=== PATIENT | female | born 1960 | race Caucasian/White ===

== ENCOUNTER 2018-11-08 07:26 | Inpatient (IN) ==
--- NOTE | 2018-10-17 11:07 | Anesthesiology Consultation ---
Date of Service October 17, 2018 Assessment & Plan (1) Encounter for pre-operative examination: PCP CLEARANCE (MERON) 10/31 = "medically cleared and low risk for proposed surgery. Reviewed labs and chest x-ray. Chest CT done 10/27/18 for evaluation of possible nodule is still pending but should not interfere with the surgery." CT subsequently resulted and shows no pulmonary nodules. Chart Review Chart Review: Acceptable Risk for Surgery and Patient seen in Pre Admission Testing Teaching & Discussion Instructed NPO after midnight before surgery, except medications with 15 cc of water. Medication instructions provided according to the PAT guidelines. History Surgery Operation Date: 11/08/18 09:15 Proposed Procedures p Left Total Knee Arthroplasty - Candelario Mandel DO Height/Weight Height: 5 ft 4.5 in Weight: 106 kg Allergies Allergy/AdvReac Type Severity Reaction Status Date / Time No Known Allergies Allergy Unknown Verified 10/10/18 10:03 Medications Home Medications Medication Instructions Recorded Confirmed Last Taken calcium carbonate [Tums] 200 mg PO BID PRN 10/10/18 10/10/18 Unknown citalopram 20 mg PO QAM 10/10/18 10/10/18 Unknown meloxicam 15 mg PO QAM 10/10/18 10/10/18 Unknown Past Medical History Medical History Anxiety GERD (gastroesophageal reflux disease) RARELY Migraine H/O Nausea and vomiting after administration of anesthetic agent Osteoarthritis Exercise / Class Metabolic Activity II 4-5 Yardwork/Stairs/Walk up hill (Denies CP or SOB with stairs, activity limi leonardo only by knee pain) Past Family History Family History Sister FHx: breast cancer, Onset Age: 59 FHx: bladder cancer, Onset Age: 60 Father FHx: lung cancer, Onset Age: 70 Past Surgical History Surgical History Fusion of spine C5-C6-C7. FULL ROM. History of cataract surgery BILATERAL History of colonoscopy History of tonsillectomy Past Anesthesia History No Hx of Anesthesia Complications (other than PONV) and No Family Hx of Anesthesia Complications History of PONV History of PONV (with cataracts. Was OK with c-spine sx) and Hx of Motion Sickness Social History Smoking Status: Former smoker tobacco type: cigarettes Do You Dip or Chew Tobacco: No Smoking End Date: QUIT 10 YEARS AGO Hx Alcohol Use: Yes alcohol intake frequency: holidays/special occasions only Hx Substance Use: No substance use type: does not use Review of Systems Pt denies any recent chest pain, shortness of breath, palpitations, cough, fever or URI. Physical Exam Vital Signs BP: 134/83 P: 81bpm SPO2: 96% RA T: 98.2 F R: 16 Constitutional + obese ENMT Mouth: + dentures (full upper plate) and + edentulous Thyromental Distance: < 3.5 Finger Breadths (3) Mallampati Class: II Neck normal visual inspection; neck extension not limited Respiratory normal respiratory effort Auscultation: lungs clear to auscultation bilaterally Cardiovascular Rate/Rhythm: regular rate and regular rhythm Heart Sounds: no murmur Vessels: no carotid bruit Extremities: no edema Testing Electrocardiogram Date: 10/17/18 Findings: + NSR @ (72 with sinus arrhythmia) DECLAN. iRBBB. Borderline EKG. Compared to EKG of 07/04/03, no significant change found. Chest X-Ray Date: 10/17/18 IMPRESSION: 1. Subtle 1.2 cm nodular opacity within left midlung. This may reflect artifact, minimal airspace disease or a pulmonary nodule. A chest CT is recommended to exclude a pulmonary nodule. 2. Otherwise, unremarkable chest radiographs. Other Testing CT Chest 10/27/18 No suspicious pulmonary nodules. Laboratory Results 10/17/18 11:16 10/17/18 11:16 PT 10.9 Seconds (9.0-12.0) 10/17/18 11:16 INR 1.1 (0.9-1.1) 10/17/18 11:16 APTT 28.2 Seconds (21.0-31.0) 10/17/18 11:16 5.6 % (4.5-5.6) 10/17/18 11:16 Yellow 10/17/18 11:16 Clear (Clear) 10/17/18 11:16 5.5 (4.5-7.5) 10/17/18 11:16 Ur Specific [place] 1.017 (1.000-1.030) 10/17/18 11:16 Negative (Negative) 10/17/18 11:16 Negative (Negative) 10/17/18 11:16 Negative (Negative) 10/17/18 11:16 Negative (Negative) 10/17/18 11:16 Ur Leukocyte Esterase Negative (Negative) 10/17/18 11:16 Blood Type O Positive 10/17/18 11:16 Antibody Screen NEGATIVE 10/17/18 11:16
--- NOTE | 2018-10-17 11:12 | PAT Medication Instructions ---
Medication Instructions Date of Service October 17, 2018 Home Medications calcium carbonate [Tums] 200 mg PO BID PRN citalopram 20 mg PO QAM meloxicam 15 mg PO QAM ASK your surgeon for instructions meloxicam 15 mg PO QAM DO NOT take the morning of surgery calcium carbonate [Tums] 200 mg PO BID PRN Take morning of surgery With a small sip of water, OTHERWISE NOTHING TO EAT OR DRINK AFTER MIDNIGHT: citalopram 20 mg PO QAM Take evening before surgery calcium carbonate [Tums] 200 mg PO BID PRN (if needed) Other Notes If you have any questions please call us at [phone] or [phone] or [phone] or [phone]
--- NOTE | 2018-10-17 11:38 | XRay Report ---
XR chest Pre-admission PA/Lat CLINICAL HISTORY: Preoperative evaluation. COMPARISON STUDY: No previous studies for comparison. FINDINGS: Anterior cervical spine fusion is incidentally noted. Lung volumes are normal. There is no pneumothorax or pleural effusion. Note is made of a subtle 1.2 cm nodular opacity within the left mid lung. This may be artifactual. Right lung is clear. Cardiac size is normal. Mediastinal contours are normal. There is no evidence for pulmonary edema. IMPRESSION: 1. Subtle 1.2 cm nodular opacity within left midlung. This may reflect artifact, minimal airspace dis ease or a pulmonary nodule. A chest CT is recommended to exclude a pulmonary nodule. 2. Otherwise, unremarkable chest radiographs. Electronically signed by: Jluis Ibanez M.D. 10/17/2018 11:36 AM
[2018-10-17 11:52] LABS: Basophils # (auto) 0.02 K/uL (0-0.2); Basophils % (auto) 0.3 %; Eosinophils # (auto) 0.11 K/uL (0-0.5); Eosinophils % (auto) 1.5 %; Hematocrit (blood only) 39.8 % (37-47); Hemoglobin 13.2 g/dL (12.0-16.0); Immature Granulocytes # (auto) 0.02 K/uL (0.00-0.02); Immature Granulocytes % (auto) 0.3 %; Lymphocytes # (auto) 1.75 K/uL (1.2-3.4); Lymphocytes % (auto) 23.5 %; Mean Corpuscular Hgb Conc 33.2 g/dL (32-36); Mean Corpuscular Volume 87.5 fL (80-100); Mean Platelet Volume 9.3 fL (7.4-10.4); Monocytes # (auto) 0.55 K/uL (0.11-0.59); Monocytes % (auto) 7.4 %; Neutrophils # (auto) 5.01 K/uL (1.4-6.5); Platelet Count 404 K/uL (130-400); RDW Coefficient of Variation 14.1 % (11.5-14.5); RDW Standard Deviation 44.8 fL (36.4-46.3); Red Blood Count 4.55 M/uL (4.2-5.4); White Blood Count 7.46 K/uL (4.8-10.8)
[2018-10-17 12:01] LABS: Albumin Level 3.5 gm/dl (3.4-5.0); Calcium 9.3 mg/dl (8.5-10.1); Creatinine Clr Calc Pharmacy 109.7 ml/min; Est GFR (African American) 112.3; Est GFR (Non-African American) 96.9; Potassium 4.6 mmol/L (3.5-5.1)
[2018-10-17 12:07] LABS: Appearance Urine Clear (Clear); Bilirubin Urine Negative (Negative); Blood Urine Negative (Negative); Color Urine Yellow; Glucose Urine UA Negative (Negative); INR 1.1 (0.9-1.1); Ketones Urine Negative (Negative); Leukocyte Esterase Urine Negative (Negative); Nitrite Urine Negative (Negative); Partial Thromboplastin Time 28.2 Seconds (21.0-31.0); Protein Urine Negative (Negative); Prothrombin Time 10.9 Seconds (9.0-12.0); Specific Gravity Urine 1.017 (1.000-1.030); Urobilinogen Urine Negative (Negative); pH Urine 5.5 (4.5-7.5)
[2018-10-17 12:30] LABS: Estimated Average Glucose 114 mg/dl; Hemoglobin A1C 5.6 % (4.5-5.6)
--- NOTE | 2018-11-06 23:30 | History & Physical Report ---
Date of Service November 06, 2018 Assessment & Plan (1) Degenerative joint disease of knee, left: I have indicated the patient for left total knee replacement. The risks, benefits and complications of surgery were explained to the patient which include but not limited to infection, acute blood loss, DVT/PE, injury to nerves, vessels, bone, soft tissue, arthrofibrosis, chronic pain, failure of the prosthesis, knee dislocation, leg length discrepancy, need for additional surgery, cardiac and pulmonary events and . The patient wished to proceed with surgery and informed consent was obtained at this time. We will plan for ASA BID post-operatively for DVT prophylaxis. Upon discharge the patient will be discharged home with home health services. Appropriate clearances by PCP were obtained. History of Present Illness Chief Complaint: Left knee pain/djd Primary Care Provider: Pauline Fowler MD The patient is a 58 year old female who presents with complaints of severe left knee pain and DJD. The patient has failed outpatient conservative treatments to this point which included NSAIDs, bracing, IA corticosteroid and LOFTON injections, HEP/PT. The patient's pain and limited function have progressed to the point where they severely hinder their activities of daily living and they no longer tolerate exercise programs. They are requesting to proceed with total knee replacement surgery. Allergies Allergy/AdvReac Type Severity Reaction Status Date / Time No Known Allergies Allergy Unknown Verified 11/08/18 07:48 Home Medications Home Medications Medication Instructions Recorded Confirmed Type calcium carbonate [Tums] 200 mg PO BID PRN 10/10/18 11/08/18 History citalopram 20 mg PO QAM 10/10/18 11/08/18 History meloxicam 15 mg PO QAM 10/10/18 11/08/18 History Past Med/Surg History Medical History Anxiety GERD (gastroesophageal reflux disease) RARELY Migraine H/O Osteoarthritis Surgical History Fusion of spine C5-C6-C7. FULL ROM. 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: No Beliefs That Will Affect Care: None Current Living Situation: Alone Other Information That Helps Us Care for You: No Feels Safe at Home: Yes Safety Concerns: Feels Safe At This Time Smoking Status: Former smoker (QUIT 09/2008, SMOKED FOR 31 YEARS) Tobacco Type: cigarettes Cigarettes Per Day: 30 Do You Dip or Chew Tobacco: No Smoking End Date: QUIT 10 YEARS AGO Second Hand Exposure: No Tobacco Cessation Education Requested by Patient: No Hx Alcohol Use: Yes Hx Substance Use: No Review of Systems Review of Systems: All systems reviewed & are unremarkable except as noted in HPI & below Constitutional: as per Subjective / HPI Physical Exam Physical Exam: LLE NVSI +EHL/FHL/TA/GS SILT grossly, +2 DP pulse, compartments soft NT, limited painful ROM 5-100, crepitus. Constitutional: WD/WN, vitals as above Eyes: PERRL, conjunctivae normal, anicteric sclerae ENMT: external ear and nose normal, oropharynx normal Neck: trachea midline, no thyromegaly Respiratory: normal respiratory effort, lungs clear to auscultation Cardiovascular: RRR, no murmur, no edema Gastrointestinal (Abdomen): normal bowel sounds, soft, nontender, no hepatosplenomegaly Musculoskeletal: no cyanosis or clubbing, extremities motor strength 5/5 Skin: no rashes, warm and dry Neurologic: patellar DTR's 2+ bilat, sensation intact Psychiatric: A+Ox3, euthymic affect Lymphatic: no cervical or axillary lymphadenopathy Results & Data Diagnostic Findings Multiple views of the knee demonstrates severe tricompartmental DJD with complete loss of the medial and patellofemoral joint space. +osteophytes, +sclerosis, +subchondral cysts.
[~2018-11-08 07:26] MED LIST: ACETAMINOPHEN 500 MG TAB PO SCH; BUPIVACAINE 0.5 % 5 MG/1 ML PF 10ML VIAL ONE; CEFAZOLIN 2000MG 2,000 MG/15 ML SYR IV SCH; CeleBREX 200 MG CAP PO SCH; FAMOTIDINE 20 MG TAB PO SCH; GABAPENTIN 300 MG x 2 PO SCH; LR 500ML BOLUS, THEN 15ML/HR IV SCH; ROPIVACAINE 0.5% 5 MG/ML 30 ML VIAL ONE; ROPIVACAINE 0.5% HCL/PF 150 MG, BUPIVACAINE 0.5% MPF 30 ML, EPINEPHrine 30MG/30ML (OR U... INFIL SCH; TRANEXAMIC ACID 1,000 MG **IV Intra-op IV SCH; TRANEXAMIC ACID 1,000 MG **IV Pre-op IV SCH
[2018-11-08] MEDS ORDERED: MIDAZOLAM HCL 1 MG/ML 2ML VIAL ONE ×2 (08:37)
[2018-11-08] MEDS ORDERED: PROPOFOL IV EMULSION 10 MG/ML 20 ML VIAL IV ONE (08:37)
[2018-11-08] MEDS ORDERED: LIDOCAINE HCL 2% 2 ML VIAL/AMP(20MG/ML) INFIL ONE (08:37)
[2018-11-08] MEDS ORDERED: HYDROmorphone INJ 2 MG/ML SYR/VIAL IV PRN (09:33)
[2018-11-08] MEDS ORDERED: ATROPINE SULFATE 0.1 MG/ML 10ML SYR IV PRN (09:33)
[2018-11-08] MEDS ORDERED: fentaNYL citrate 100 MCG/2 ML VIAL IV PRN (09:33)
[2018-11-08] MEDS ORDERED: ePHEDrine sulfate 50 MG/ML AMP IV PRN (09:33)
[2018-11-08] MEDS ORDERED: POVIDONE-IODINE OP SOLN 30 ML BTL ONE (09:38)
[2018-11-08] MEDS ORDERED: ORTHO JOINT ANESTHETIC ONE (09:38)
[2018-11-08] MEDS ORDERED: BACITRACIN INJ 50,000 UNIT VIAL ONE (09:38)
--- NOTE | 2018-11-08 09:38 | History & Physical Bridge Note ---
Date of Service November 08, 2018 History & Physical Bridge Note I have examined the patient, reviewed the History & Physical and in the interval since the performance of the History & Physical I have noted the following changes of clinical significance: no changes noted
--- NOTE | 2018-11-08 11:36 | Post Operative Brief Note ---
Immediate Post Op Note v1 Date of Surgery November 08, 2018 Pre & Post Diagnosis Operation Date: 11/08/18 09:45 Pre-Op Diagnosis: Left Knee Degenerative Joint disease Post-Op Diagnosis: Left Knee Degenerative Joint disease Procedure Operation Date: 11/08/18 09:45 Actual Procedures p Left Total Knee Arthroplasty(Left) - Candelario Mandel DO Surgeon Candelario Mandel DO Puzzle Assembler [place] Krishnan Estimated Blood Loss 50 Findings Consistent with Post-Op Diagnosis Fluids 1400 cc LR Specimens proximal tibia and distal femur bone fragments Drains Hemovac Drain Anesthesia Type Spinal MAC Complications none Disposition Disposition: Recovery Room Overlapping Procedure I was present for: the critical portions of procedure. I was immediately available: during the entire case. Back up surgeon: was not required during procedure.
--- NOTE | 2018-11-08 11:49 | Operative Report ---
Post Operative Report Pre & Post Diagnosis Operation Date: 11/08/18 09:45 Pre-Op Diagnosis: Left Knee Degenerative Joint disease Post-Op Diagnosis: Left Knee Degenerative Joint disease Procedure Operation Date: 11/08/18 09:45 Actual Procedures p Left Total Knee Arthroplasty(Left) - Candelario Mandel DO Surgeon Candelario Mandel DO Painter Tumbling Barrel [place] Krishnan Estimated Blood Loss 50 Findings Consistent with Post-Op Diagnosis Fluids 1400 cc LR Specimens Proximal tibia and distal femur bone fragments Anesthesia Type Spinal Complications none Disposition Disposition: Recovery Room Indications The patient is a 58-year-old for presents with long history of severe left knee tricompartmental DJD and failed outpatient conservative treatments including NSAIDs, bracing, injections and home walking/exercise program. The patient's symptoms have progressed to the point where it has been difficult to perform normal activities of daily living. I have indicated the patient for a left total knee arthroplasty, the risks and benefits and complications of the procedure include but are not limited to infection bleeding damage to bone, nerves, vessels, surrounding soft tissue, blood clots, loss of function, leg length discrepancy, dislocation, failure of the components, need for additional surgery and . The patient wished to proceed with surgery at this time and informed consent was obtained. Appropriate clearances were obtained. Description of Procedure COMPONENTS USED: Holly persona knee system: Femur size 8 narrow, Tibia size D, tibial articulating surface 10 PS, patella 29 Following induction of spine anesthesia, a tourniquet was applied to the proximal aspect of the thigh and the patient's left leg was prepped and draped in the usual sterile manner. A timeout was performed, patient identified and site sweetie confirmed. Appropriate pre-operative IV antibiotics were given. The limb was exsanguinated with an Esmarch bandage and tourniquet was inflated to 300 mmHg. A longitudinal midline incision was made over the anterior knee. Subcutaneous tissue was sharply dissected down to fascia. Electrocautery was used for hemostasis. Next a parapatellar arthrotomy was performed. Patella was everted and the knee was flexed. A Truong retractor was used to expose the synovium above on the anterior aspect of the femur and removed down to bone. Next, the anterior fat pad was removed to aid in visualization. The medial face of the tibia was cleared of soft tissue first with a Bovie and a ohara elevator. This tissue was retracted posteriorly using a blunt Hohmann. Next, the extra-medullary tibial cutting guide was placed to the anterior aspect of the tibia. The tibia resection level was set taking 2mm from the defective tibial condyle. Resection depth was once again confirmed with naida wing. The medial and lateral collateral ligament was protected with two Hohmann retractors. The tibia guide was removed and proximal tibial bone fragment removed utilizing straight osteotome, electrocautery and Andrés. Next, the distal femur intramedullary canal was accessed utilizing the step drill. The intramedullary distal femur cutting guide was placed into the canal and pinned into place. The distal femur was cut on the posterior 5 degree setting. Next the cutting guide was removed and the femur was sized. Care was taken to ensure appropriate polish compounder all rotation and 3 degrees degree holes were drilled. A size 8 4-in-1 cutting block was placed on the distal end of the femur and secured into place with two short headed screws. Two bent Hohmann retractors were placed to protect the medial and lateral collateral ligaments. The oscillating saw was used to cut anterior, posterior, anterior chamfer and posterior chamfer. The four and one cutting block was removed and bone fragments excised. Laminar flavor tank tender was placed laterally and the ACL and PCL were removed followed by the medial meniscus and posterior medial osteophytes. Aquamantys was utilized for any posterior medial bleeders and Orthomix injected into the posterior medial capsule. A laminar flavor tank tender was then placed in the medial compartment and the lateral meniscus and posterior osteophytes were removed. Aquamantys was utilized for any posterior lateral bleeders and Orthomix injected into the posterior lateral capsule. Next, drop angelita and spacer block were placed with the leg in flexion and extension to assess alignment and flexion/extension gaps. Next, the proximal tibia was assessed and two bent Hohmans were placed medial and lateral to aid in visualization. The appropriate tibia size and rotation was selected and a size D tibial plate was pinned into place with appropriate rotation. Preparation of the tibia was completed utilizing the matching tibial drill and broach. I then turned my attention back to the distal femur in a trial femoral component was impacted into place. Appropriate femoral width was assessed and selected. Next the femur PS box cut guide was placed and cut made with the reciprocal saw and the PS box provisional placed. A trial size 10 PS tibia articular tray was placed and varus-valgus balance assessed in 0 degrees of extension and 30, 60 and 90 degrees of flexion. A final tibial articular surface size 10 PS was chosen. Assess was gained to the patella and caliper utilized to measure width. The patella reamer was utilized and remaining bone removed with oscillating saw. A size 29 patella button was selected and the patella pegs drilled. Trial patella button was placed and tracking was assessed. The knee was found to be well balanced, well aligned with excellent patella tracking. The trials were removed and final components were obtained and assembled. The knee was irrigated copiously with sterile saline solution mixed with bacitracin. Access to the proximal tibia was once again obtained utilizing to the Hohmans and the proximal tibia and distal femur were dried with lap sponges. The final components were cemented into place and all excess cement was removed. A trial tibial articular surface was placed while cemented hardened. Knee stability was once again assessed and the final component inserted. A Betadine soak was performed. After 3 minutes, the hip was once more irrigated with copious sterile saline solution with bacitracin. The knee was injected with the remaining Orthomix which includes a combination of Ropivicaine 0.5% 150mg, Bupivicaine 0.5%/Epinephrine 1:200,000 30ml, Toradol 30mg, Dexamethasone 4mg, Ketamine 10mg, Clonidine 100mcg and NSS 30ml solution. The capsulotomy was closed with #1 Vicryl followed by subcutaneous closure with 2-0 Vicryl suture and a 3-0 V-lock suture. Skin closure was performed using tarun dressing followed by Vita incisional VAC. Tourniquet was deflated at 87 minutes minutes. The patient tolerated the procedure well and was taken to the PACU in stable condition. Due to the complex nature of the procedure, the entire surgery was performed with the operational assistance of [place] Krishnan PA-C. The retail administrative assistant, under direct supervision, was involved in the actual performance of all aspects of the surgical procedure including patient positioning, hemostasis, tissue retraction, instrument management and wound closure. I attest to the content of the Intraoperative Record and any orders documented therein. Any exceptions are noted below.
--- NOTE | 2018-11-08 12:53 | XRay Report ---
LEFT KNEE 2 VIEWS History: Left total knee arthroplasty. Degenerative arthritis. Postop. FINDINGS: The patient is status post a left total knee arthroplasty. The hardware is intact. No fract ure or dislocation. Skin tarun are in place. IMPRESSION: Left total knee arthroplasty. No evidence for hardware complication. Electronically signed by: Sampson Dyson M.D. 11/08/2018 12:52 PM
[2018-11-08] MEDS ORDERED: NALOXONE HCL 0.4 MG/1 ML VIAL/CARP IV PRN (13:01)
[2018-11-08] MEDS ORDERED: BISACODYL 10 MG SUPP PR PRN (13:01)
[2018-11-08] MEDS ORDERED: MAGNESIUM HYDROXIDE SUSP 30 ML UDC PO PRN (13:01)
[2018-11-08] MEDS: SODIUM CHLORIDE 0.9% 1000ML 1,000 ML IV SCH ×2 (13:37→23:56)
[2018-11-08] MEDS: KETOROLAC 30 MG/ML VIAL IV SCH ×3 (13:38→23:56)
--- NOTE | 2018-11-08 13:51 | Anesthesiology Progress Note ---
Date of Service November 08, 2018 Anesthesia Post Procedure Vital Signs Vital Signs: Temp Pulse Pulse Resp BP Pulse Ox 11/08/18 13:48 61 18 150/86 H 93 11/08/18 13:19 60 17 134/77 95 11/08/18 12:50 36.5 C 66 14 135/86 93 11/08/18 12:35 36.4 C L 72 14 137/80 95 11/08/18 12:25 61 14 123/68 95 11/08/18 12:15 65 15 123/72 96 11/08/18 12:09 36.4 C L 70 17 142/84 H 98 11/08/18 07:50 36.7 C 81 16 143/84 H 95 Transfer of Care Handoff Completed per policy Notes Mental Status: alert / awake / arousable and participated in evaluation Patient Amnestic to Procedure: Yes Nausea / Vomiting: adequately controlled Pain: adequately controlled Airway Patency, RR, SpO2: stable & adequate BP & HR: stable & adequate Hydration State: stable & adequate Neuraxial Anesthesia: was administered and sensory block is resolving Anesthetic Complications: no major complications apparent
[2018-11-08] MEDS: ONDANSETRON INJ 2 MG/ML 2 ML VIAL IV PRN ×2 (17:24→23:18)
[2018-11-08] MEDS: CEFAZOLIN 2000MG 2,000 MG/15 ML SYR IV SCH (17:25)
[2018-11-08] MEDS: METOCLOPRAMIDE HCL INJ 5 MG/ML 2 ML VIAL IV PRN (19:33)
[2018-11-08] MEDS: HYDROmorphone INJ 0.5 MG/0.5 ML SYR IV PRN (19:48)
[2018-11-08] MEDS: ACETAMINOPHEN 500 MG TAB PO SCH (21:31)
--- NOTE | 2018-11-08 22:16 | Orthopedic Progress Note ---
Date of Service November 08, 2018 Assessment & Plan (1) Degenerative joint disease of knee, left: s/p L TKA -ancef x 24 -DVT ppx - SCDs/TEDs/ASA BID -WBAT LLE -PT/OT -PO XR demonstrates well aligned well fixed prosthesis without fracture/dislocation -am labs -DC planning Subjective Post Operative Progress Note Patient seen sitting up in bed, comfortable, denies complaints, pain well controlled, no acute issues. Review of Systems Review of Systems: All systems reviewed & are unremarkable except as noted in HPI & below Constitutional: as per Subjective / HPI Physical Exam Physical Exam: LLE NVSI +EHL/FHL/TA/GS SILT grossly, +2 DP pulse, compartments soft NT, dressing cdi. Constitutional: WD/WN, vitals as above Results & Data Vital Signs (Past 12 Hours) Vital Signs Temp Pulse Pulse Resp BP Pulse Ox 11/08/18 19:40 36.5 C 77 18 150/87 H 93 11/08/18 15:48 36.4 C L 71 16 125/77 94 11/08/18 14:39 62 18 146/94 H 94 11/08/18 13:48 61 18 150/86 H 93 11/08/18 13:19 60 17 134/77 95 11/08/18 12:50 36.5 C 66 14 135/86 93 11/08/18 12:35 36.4 C L 72 14 137/80 95 11/08/18 12:25 61 14 123/68 95 11/08/18 12:15 65 15 123/72 96 11/08/18 12:09 36.4 C L 70 17 142/84 H 98
[2018-11-08] MEDS: SENNA 8.6 MG TAB PO SCH (22:52)
[2018-11-08] MEDS: DOCUSATE SODIUM 100 MG CAP PO SCH (22:52)
[2018-11-09] MEDS: CEFAZOLIN 2000MG 2,000 MG/15 ML SYR IV SCH (02:36)
[2018-11-09 05:54] LABS: Hematocrit (blood only) 35.5 % (37-47); Hemoglobin 11.7 g/dL (12.0-16.0); Mean Corpuscular Volume 87.7 fL (80-100); Mean Platelet Volume 8.7 fL (7.4-10.4); Platelet Count 353 K/uL (130-400); RDW Standard Deviation 45.3 fL (36.4-46.3); Red Blood Count 4.05 M/uL (4.2-5.4); White Blood Count 11.39 K/uL (4.8-10.8)
[2018-11-09] MEDS: ONDANSETRON INJ 2 MG/ML 2 ML VIAL IV PRN ×2 (05:55→21:32)
[2018-11-09] MEDS: ACETAMINOPHEN 500 MG TAB PO SCH ×3 (06:00→21:38)
[2018-11-09] MEDS: KETOROLAC 30 MG/ML VIAL IV SCH (06:02)
[2018-11-09 06:25] LABS: BUN Creatinine Ratio 38.7 (10-20); Calcium 8.7 mg/dl (8.5-10.1); Creatinine Clr Calc Pharmacy 150.8 ml/min; Est GFR (African American) 124.5; Est GFR (Non-African American) 107.4; Potassium 4.1 mmol/L (3.5-5.1)
[2018-11-09] MEDS: METOCLOPRAMIDE HCL INJ 5 MG/ML 2 ML VIAL IV PRN ×2 (08:04→18:23)
[2018-11-09] MEDS: CITALOPRAM 20 MG TAB PO SCH (09:04)
[2018-11-09] MEDS: ASPIRIN 325 MG ECTAB PO SCH ×2 (09:04→21:37)
[2018-11-09] MEDS: OXYCODONE HCL IR 5 MG TAB (IMMEDIATE RELEASE) PO PRN ×2 (09:04→18:23)
[2018-11-09] MEDS: MULTIVITAMIN TAB PO SCH (09:05)
[2018-11-09] MEDS: DOCUSATE SODIUM 100 MG CAP PO SCH ×2 (09:05→21:37)
--- NOTE | 2018-11-09 10:47 | Orthopedic Progress Note ---
Date of Service November 09, 2018 Assessment & Plan (1) Degenerative joint disease of knee, left: s/p L TKA POD#1 -ancef x 24 -DVT ppx - SCDs/TEDs/ASA BID -WBAT LLE -PT/OT -PO XR demonstrates well aligned well fixed prosthesis without fracture/dislocation -am labs see above -Nausea - continue to monitor, medications given -DC planning home with home health today vs tomorrow. Subjective Post Operative Progress Note Patient seen sitting up in bed, pain well controlled, c/o intermittent nausea. Denies SOB/CP/feeling dizzy or light headed. Review of Systems Review of Systems: All systems reviewed & are unremarkable except as noted in HPI & below Constitutional: as per Subjective / HPI Physical Exam Physical Exam: LLE NVSI +EHL/FHL/TA/GS SILT grossly, +2 DP pulse, compartments soft NT, dressing cdi. Constitutional: WD/WN, vitals as above Results & Data Vital Signs (Past 12 Hours) Vital Signs Temp Pulse Pulse Resp BP Pulse Ox 11/09/18 07:45 36.6 C 80 16 132/86 93 11/09/18 02:53 36.6 C 68 16 144/87 H 93 Laboratory Results Lab Results 10/17/18 10/17/18 10/17/18 Range/Units 11:16 11:16 11:16 WBC 7.46 (4.8-10.8) K/uL RBC 4.55 (4.2-5.4) M/uL Hgb 13.2 (12.0-16.0) g/dL Hct 39.8 (37-47) % MCV 87.5 (80-100) fL MCH 29.0 (25-34) pg MCHC 33.2 (32-36) g/dL RDW Std Deviation 44.8 (36.4-46.3) fL RDW Coeff of Julia 14.1 (11.5-14.5) % Plt Count 404 H (130-400) K/uL MPV 9.3 (7.4-10.4) fL Immature Gran % (Auto) 0.3 % Neut % (Auto) 67.0 % Lymph % (Auto) 23.5 % Callaway % (Auto) 7.4 % Eos % (Auto) 1.5 % Baso % (Auto) 0.3 % Immature Gran # (Auto) 0.02 (0.00-0.02) K/uL Neut # (Auto) 5.01 (1.4-6.5) K/uL Lymph # (Auto) 1.75 (1.2-3.4) K/uL Callaway # (Auto) 0.55 (0.11-0.59) K/uL Eos # (Auto) 0.11 (0-0.5) K/uL Baso # (Auto) 0.02 (0-0.2) K/uL PT 10.9 (9.0-12.0) Seconds INR 1.1 (0.9-1.1) APTT 28.2 (21.0-31.0) Seconds PTT Ratio 1.0 Sodium 141 (136-145) mmol/L Potassium 4.6 (3.5-5.1) mmol/L Chloride 106 (98-107) mmol/L Carbon Dioxide 28 (21-32) mmol/L Anion Gap 7.0 (3-11) BUN 17 (7-18) mg/dl Creatinine 0.67 (0.6-1.2) mg/dl Est Cr Clr Drug Dosing 109.7 ml/min Est GFR ( Amer) 112.3 Est GFR (Non-Af Amer) 96.9 BUN/Creatinine Ratio 25.0 H (10-20) Glucose 83 (70-99) mg/dl Estimat Average Glucose mg/dl Hemoglobin A1c (4.5-5.6) % Calcium 9.3 (8.5-10.1) mg/dl Albumin 3.5 (3.4-5.0) gm/dl Urine Color Urine Appearance (Clear) Urine pH (4.5-7.5) Ur Specific Flippin (1.000-1.030) Urine Protein (Negative) Urine Glucose (UA) (Negative) Urine Ketones (Negative) Urine Blood (Negative) Urine Nitrite (Negative) Urine Bilirubin (Negative) Urine Urobilinogen (Negative) Ur Leukocyte Esterase (Negative) Hepatitis C Ab Screen (Neg) Blood Type Antibody Screen 10/17/18 10/17/18 10/17/18 Range/Units 11:16 11:16 11:16 WBC (4.8-10.8) K/uL RBC (4.2-5.4) M/uL Hgb (12.0-16.0) g/dL Hct (37-47) % MCV (80-100) fL MCH (25-34) pg MCHC (32-36) g/dL RDW Std Deviation (36.4-46.3) fL RDW Coeff of Julia (11.5-14.5) % Plt Count (130-400) K/uL MPV (7.4-10.4) fL Immature Gran % (Auto) % Neut % (Auto) % Lymph % (Auto) % Callaway % (Auto) % Eos % (Auto) % Baso % (Auto) % Immature Gran # (Auto) (0.00-0.02) K/uL Neut # (Auto) (1.4-6.5) K/uL Lymph # (Auto) (1.2-3.4) K/uL Callaway # (Auto) (0.11-0.59) K/uL Eos # (Auto) (0-0.5) K/uL Baso # (Auto) (0-0.2) K/uL PT (9.0-12.0) Seconds INR (0.9-1.1) APTT (21.0-31.0) Seconds PTT Ratio Sodium (136-145) mmol/L Potassium (3.5-5.1) mmol/L Chloride (98-107) mmol/L Carbon Dioxide (21-32) mmol/L Anion Gap (3-11) BUN (7-18) mg/dl Creatinine (0.6-1.2) mg/dl Est Cr Clr Drug Dosing ml/min Est GFR ( Amer) Est GFR (Non-Af Amer) BUN/Creatinine Ratio (10-20) Glucose (70-99) mg/dl Estimat Average Glucose 114 mg/dl Hemoglobin A1c 5.6 (4.5-5.6) % Calcium (8.5-10.1) mg/dl Albumin (3.4-5.0) gm/dl Urine Color Yellow Urine Appearance Clear (Clear) Urine pH 5.5 (4.5-7.5) Ur Specific Flippin 1.017 (1.000-1.030) Urine Protein Negative (Negative) Urine Glucose (UA) Negative (Negative) Urine Ketones Negative (Negative) Urine Blood Negative (Negative) Urine Nitrite Negative (Negative) Urine Bilirubin Negative (Negative) Urine Urobilinogen Negative (Negative) Ur Leukocyte Esterase Negative (Negative) Hepatitis C Ab Screen (Neg) Blood Type O Positive Antibody Screen NEGATIVE 11/09/18 11/09/18 11/09/18 Range/Units 05:41 05:41 05:41 WBC 11.39 H (4.8-10.8) K/uL RBC 4.05 L (4.2-5.4) M/uL Hgb 11.7 L (12.0-16.0) g/dL Hct 35.5 L (37-47) % MCV 87.7 (80-100) fL MCH 28.9 (25-34) pg MCHC 33.0 (32-36) g/dL RDW Std Deviation 45.3 (36.4-46.3) fL RDW Coeff of Julia 14.0 (11.5-14.5) % Plt Count 353 (130-400) K/uL MPV 8.7 (7.4-10.4) fL Immature Gran % (Auto) % Neut % (Auto) % Lymph % (Auto) % Callaway % (Auto) % Eos % (Auto) % Baso % (Auto) % Immature Gran # (Auto) (0.00-0.02) K/uL Neut # (Auto) (1.4-6.5) K/uL Lymph # (Auto) (1.2-3.4) K/uL Callaway # (Auto) (0.11-0.59) K/uL Eos # (Auto) (0-0.5) K/uL Baso # (Auto) (0-0.2) K/uL PT (9.0-12.0) Seconds INR (0.9-1.1) APTT (21.0-31.0) Seconds PTT Ratio Sodium 142 (136-145) mmol/L Potassium 4.1 (3.5-5.1) mmol/L Chloride 109 H (98-107) mmol/L Carbon Dioxide 26 (21-32) mmol/L Anion Gap 7.0 (3-11) BUN 19 H (7-18) mg/dl Creatinine 0.49 L (0.6-1.2) mg/dl Est Cr Clr Drug Dosing 150.8 ml/min Est GFR ( Amer) 124.5 Est GFR (Non-Af Amer) 107.4 BUN/Creatinine Ratio 38.7 H (10-20) Glucose 95 (70-99) mg/dl Estimat Average Glucose mg/dl Hemoglobin A1c (4.5-5.6) % Calcium 8.7 (8.5-10.1) mg/dl Albumin (3.4-5.0) gm/dl Urine Color Urine Appearance (Clear) Urine pH (4.5-7.5) Ur Specific Flippin (1.000-1.030) Urine Protein (Negative) Urine Glucose (UA) (Negative) Urine Ketones (Negative) Urine Blood (Negative) Urine Nitrite (Negative) Urine Bilirubin (Negative) Urine Urobilinogen (Negative) Ur Leukocyte Esterase (Negative) Hepatitis C Ab Screen Neg (Neg) Blood Type Antibody Screen
[2018-11-09] MEDS: HYDROmorphone INJ 0.5 MG/0.5 ML SYR IV PRN (12:00)
[2018-11-09] MEDS: SENNA 8.6 MG TAB PO SCH (21:37)
[2018-11-09] MEDS: CeleBREX 200 MG CAP PO SCH (21:37)
[2018-11-10] MEDS: ACETAMINOPHEN 500 MG TAB PO SCH ×2 (05:50→13:33)
[2018-11-10] MEDS: METOCLOPRAMIDE HCL INJ 5 MG/ML 2 ML VIAL IV PRN (05:51)
[2018-11-10 05:56] LABS: Hemoglobin 11.4 g/dL (12.0-16.0); Mean Corpuscular Hgb Conc 32.6 g/dL (32-36); Mean Corpuscular Volume 88.2 fL (80-100); Mean Platelet Volume 8.5 fL (7.4-10.4); Platelet Count 348 K/uL (130-400); RDW Coefficient of Variation 14.2 % (11.5-14.5); RDW Standard Deviation 45.7 fL (36.4-46.3); Red Blood Count 3.97 M/uL (4.2-5.4); White Blood Count 7.42 K/uL (4.8-10.8)
[2018-11-10 06:40] LABS: BUN Creatinine Ratio 34.7 (10-20); Calcium 8.7 mg/dl (8.5-10.1); Creatinine Clr Calc Pharmacy 153.9 ml/min; Est GFR (African American) 125.3; Est GFR (Non-African American) 108.1
[2018-11-10] MEDS: MULTIVITAMIN TAB PO SCH (08:28)
[2018-11-10] MEDS: CITALOPRAM 20 MG TAB PO SCH (08:28)
[2018-11-10] MEDS: CeleBREX 200 MG CAP PO SCH (08:28)
[2018-11-10] MEDS: DOCUSATE SODIUM 100 MG CAP PO SCH (08:28)
[2018-11-10] MEDS: ASPIRIN 325 MG ECTAB PO SCH (08:28)
[2018-11-10] MEDS: ONDANSETRON INJ 2 MG/ML 2 ML VIAL IV PRN (08:31)
--- NOTE | 2018-11-10 08:35 | Orthopedic Progress Note ---
Date of Service November 10, 2018 Assessment & Plan (1) Degenerative joint disease of knee, left: s/p L TKA POD#2 -ancef x 24 -DVT ppx - SCDs/TEDs/ASA BID -WBAT LLE -PT/OT -PO XR demonstrates well aligned well fixed prosthesis without fracture/dislocation -am labs see above -Nausea - impoved, will DC with zofran rx -DC planning home with home health today vs tomorrow. Subjective Post Operative Progress Note Patient seen sitting up in bed, pain well controlled, nausea improved today. Denies SOB/CP/feeling dizzy or light headed. Review of Systems Review of Systems: All systems reviewed & are unremarkable except as noted in HPI & below Constitutional: as per Subjective / HPI Physical Exam Physical Exam: LLE NVSI +EHL/FHL/TA/GS SILT grossly, +2 DP pulse, compartments soft NT, incisional vac intact. Constitutional: WD/WN, vitals as above Results & Data Vital Signs (Past 12 Hours) Vital Signs Temp Pulse Resp BP Pulse Ox 11/10/18 07:14 36.8 C 98 H 18 155/95 H 91 11/09/18 23:27 37.3 C 83 16 132/84 91 Laboratory Results 11/10/18 11/10/18 11/09/18 Range/Units 05:44 05:44 05:41 WBC 7.42 (4.8-10.8) K/uL RBC 3.97 L (4.2-5.4) M/uL Hgb 11.4 L (12.0-16.0) g/dL Hct 35.0 L (37-47) % MCV 88.2 (80-100) fL MCH 28.7 (25-34) pg MCHC 32.6 (32-36) g/dL RDW Std Deviation 45.7 (36.4-46.3) fL RDW Coeff of Julia 14.2 (11.5-14.5) % Plt Count 348 (130-400) K/uL MPV 8.5 (7.4-10.4) fL Sodium 142 (136-145) mmol/L Potassium 4.0 (3.5-5.1) mmol/L Chloride 107 (98-107) mmol/L Carbon Dioxide 28 (21-32) mmol/L Anion Gap 7.0 (3-11) BUN 17 (7-18) mg/dl Creatinine 0.48 L (0.6-1.2) mg/dl Est Cr Clr Drug Dosing 153.9 ml/min Est GFR ( Amer) 125.3 Est GFR (Non-Af Amer) 108.1 BUN/Creatinine Ratio 34.7 H (10-20) Glucose 88 (70-99) mg/dl Calcium 8.7 (8.5-10.1) mg/dl Hepatitis C Ab Screen Neg (Neg)
--- NOTE | 2018-11-12 17:39 | Discharge Summary ---
Date of Service November 12, 2018 Admission HPI Per Admitting Provider The patient is a 58 year old female who presents with complaints of severe left knee pain and DJD. The patient has failed outpatient conservative treatments to this point which included NSAIDs, bracing, IA corticosteroid and LOFTON injections, HEP/PT. The patient's pain and limited function have progressed to the point where they severely hinder their activities of daily living and they no longer tolerate exercise programs. They are requesting to proceed with total knee replacement surgery. Principal Diagnosis Left total knee replacement Discharge Exam LLE NVSI +EHL/FHL/TA/GS SILT grossly, +2 DP pulse, compartments soft NT, dressing cdi. Constitutional WD/WN, vitals as above Discharge Data Allergies Allergy/AdvReac Type Severity Reaction Status Date / Time No Known Allergies Allergy Unknown Verified 11/08/18 07:48 Consultations 11/08/18 13:01 Consult Case Management - Discharge Planning Routine Procedures Performed Operation Date: 11/08/18 09:45 Actual Procedures p Left Total Knee Arthroplasty(Left) - Candelario Mandel DO Ordered Studies 11/08/18 05:00 US - OR guided needle placemen Routine Hospital Course (1) Degenerative joint disease of knee, left: The patient is a 58 -year-old female who presents with long standing history of severe left DJD and failed outpatient conservative treatments including NSAIDs, bracing, injections and home walking/exercise program. The patient's symptoms have progressed to the point where it has been difficult to perform even normal activities of daily living. I indicated the patient for a left total knee arthroplasty, the risks, benefits and complications of the procedure include but not limited to infection, bleeding, damage to bone, nerves, vessels, surrounding soft tissue, may develop blood clots, loss of function, leg length discrepancy, dislocation, failure of the components, loosening of the components, the need for additional surgery and . The patient wished to proceed with surgery at this time and informed consent was obtained. Hospital Course: On 11/08/18 the patient was taken to the operating room, adequate anesthesia administered and underwent a left total knee arthroplasty. The patient tolerated the procedure well and was taken to the PACU in stable condition. Post-operatively the patient was started on a DVT ppx medication and given appropriate IV antibiotics. Consults were placed to physical therapy, occupational therapy and case management. On POD#1, the patient did well overnight and their pain was well controlled. Labs were drawn and the Hgb was 11.7. The patient progressed well with PT. Dressings were clean, dry and intact. On POD#2, the patient continued to do well. Labs drawn, hgb 11.4. Nausea completely resolved and they progressed further with PT. The patients hospital stay was relatively uneventful and they were deemed stable by the orthopedic team and consultants to be discharged hoem with on 11/10/18. Discharge Instructions: Upon discharge the patient may weight bear as tolerates through their operative extremity. They were instructed to keep the incision clean and dry at all times. The patient may shower but should not submerge the incision, avoid bathing, pools and hot tubes. The patient was given a script for pain medication and should take as instructed. The patient was given a script for DVT ppx ASA BID and should take as directed. The patient was instructed to not drive or travel for long distances until cleared to do so. If the patient develops any symptoms of fevers, chills, nausea, vomiting, increased redness, swelling, pain or drainage from the surgical site, they should notify the office and/or proceed to the nearest emergency room. The patient should follow up in 10-14 days after surgery for their routine post-operative follow-up appointment and should call the office to confirm the date and time. s/p L TKA POD#2 -ancef x 24 -DVT ppx - SCDs/TEDs/ASA BID -WBAT LLE -PT/OT -PO XR demonstrates well aligned well fixed prosthesis without fracture/dislocation -am labs see above -Nausea - impoved, will DC with zofran rx -DC planning home with home health today vs tomorrow. Total Time Total Time Spent Total Time Spent (In Minutes): >60 minutes Total Time Includes: Examination of the Patient, Discharge Planning, Medication Reconciliation and Communication With Other Providers Discharge Plan Discharge Items Patient Disposition: Home - Home Health Services Reason For Visit: Unilateral Primary Osteoarthritis, Left Knee Discharge Diagnosis: s/p left total knee replacement Condition: Good Discharge Goals: Decrease discomfort, Improve function, Increase independence and Specific goals Activity: Per 'Additional Instructions' section Lifting: Wait until after follow-up appointment Bathing Comment: No bathing, pools or hot tubs Sexual Activity: Wait until after follow-up appointment Exercise/Sports: Wait until after follow-up appointment Driving/Machine Use Comment: No driving till cleared by your surgeon. Weightbearing: Left weightbearing Non-emergency contact: Primary Care Provider and Surgeon Call non-emergency contact if: you have any medication questions, your symptoms worsen, your pain is not controlled, your pain is worsening, your pain is unusual for you, your pain is concerning for you, you have a fever, your temperature is above 101, your wound has increased redness, your wound has increased drainage and your wound pain has increased Follow-up/Referrals: Pauline Fowler MD [Primary Care Provider] - Diet: Regular Addtl Provider Instructions: ACTIVITY RECOMMENDATIONS: SELF CARE INSTRUCTIONS AFTER TOTAL KNEE REPLACEMENT A. You may need to continue a physical therapy program after discharge from the hospital. There are several options available to you. Your doctor will assist you in selecting the best one for you. 1. An out-patient facility 2 to 3 times a week for therapy or home therapy. 2. Continue working on all exercises taught to you in the hospital. Your goals should be to increase bending of your knee to 90 degrees and beyond and to fully straighten your knee. B. You may progress at your own pace from walking with a walker or crutches to a cane; then to no assistive devices. C. Make walking a part of your daily routine. Be up as much as comfortable with rest periods throughout the day. Rest with leg elevation is very important. Use the ice wrap frequently for the first 3-4 weeks. D. There are no restrictions on activities. You may ride in a car, shop, participate in finnish rubber and all social activities. E. Wear the long elastic stockings (DEBI hose) 20 hours a day for 2 weeks after surgery. They can be removed several times a day for laundering and for a bath. F. You may shower, no tub baths until cleared by your doctor. SPECIAL CARE INSTRUCTIONS: VERY IMPORTANT TO READ AND REVIEW A. There are a few signs you need to watch for after you are home. Call [facility] if you notice any of the followin. Increased severe knee pain. Some pain is expected especially when you exercise. 2. Increased swelling in your leg or knee; pain or swelling of the calf muscle in either lower leg. 3. Any fluid drainage from the incision. 4. Shortness of breath or chest pain. B. Please call [facility] at if you have any concerns or questions about your operation or recovery. The doctor or his nurse will return your call promptly. C. You must take antibiotics before dental work, bladder, bowel or other surgery. Your doctor will provide you with a permanent care to carry describing this precaution. IMPORTANT: * REMEMBER TO TAKE ASPIRIN, 325 MG, TWICE DAILY FOR 4 WEEKS UNLESS OTHERWISE DIRECTED. THIS IS YOUR BLOOD THINNER. * HIGH RISK PATIENTS MAY BE PRESCRIBED A STRONGER BLOOD THINNER. THIS WILL BE PROVIDED AT DISCHARGE. * CALL IF INCREASED PAIN, REDNESS, DRAINAGE OR FEVER GREATER THAT 101. * WEAR DEBI HOSE 20 HOURS PER DAY FOR 2 WEEKS. *PREVENA incisional vac is a special dressing covering your incision. This dressing provides a sterile dry environment while you are healing. The dressing is to be left in place for 7 days post-operatively. Your home nurse or surgeon will remove. If you develop any redness or blisters or have any questions notify your surgeon immediately. FOLLOW UP VISIT: If appointment is not already scheduled: Please call [facility] to make a follow-up appointment for 2 weeks after your surgery at . Prescriptions: New acetaminophen [Tylenol Extra Strength] 500 mg Tablet 1,000 mg PO Q8 PRN (Reason: pain) Qty: 90 RF: 0 aspirin 325 mg Tablet,Delayed Release (Dr/Ec) 325 mg PO BID 28 Days Qty: 56 RF: 0 celecoxib [Celebrex] 200 mg Capsule 200 mg PO BID PRN (Reason: pain) Qty: 28 RF: 0 oxycodone 5 mg Tablet 5 mg PO Q6H MDD 6 tabs PRN (Reason: pain) Qty: 30 RF: 0 sennosides [Senokot] 8.6 mg Tablet 17.2 mg PO HS PRN (Reason: constipation) Qty: 28 RF: 0 ondansetron HCl 8 mg tablet 8 mg PO Q8H PRN (Reason: nausea and vomiting) 5 Days Qty: 15 RF: 0 Continued citalopram 20 mg Tablet 20 mg PO QAM RF: 0 calcium carbonate [Tums] 200 mg calcium (500 mg) Tablet,Chewable 200 mg PO BID PRN (Reason: Heartburn) RF: 0 Discontinued meloxicam 15 mg Tablet 15 mg PO QAM RF: 0 Stand-Alone Forms: My [facility]/Other Patient Handouts: Replacement Total Knee Dc Discharge Orders: Discharge Order (Routine); Ordered 11/10/18 Ordered By: Candelario Mandel Admission Data Admit Date/Time: 11/08/18 12:22 Attending Provider: Candelario Mandel Admit Provider: Candelario Mandel Primary Care Provider: Pauline Fowler Service: Surgical Services Other Interventions: Discharge Summary Assessment (RN) Last Done: 11/10/18 14:23 DC Date/Time DO NOT enter until pt leaves facility: 11/10/18 14:41
== END 2018-11-10 14:41 | disposition home health service (06) ==
LOC: ASU 07:26 → 3E 12:22

== ENCOUNTER 2023-12-24 08:10 | Observation (INO) ==
--- NOTE | 2023-11-23 16:13 | PAT Medication Instructions ---
Medication Instructions Date of Service November 23, 2023 Home Medications calcium carbonate (Tums) 200 mg PO UD PRN acetaminophen 500 mg tablet (Tylenol Extra Strength) 1,000 mg PO UD PRN meloxicam 15 mg tablet 15 mg PO QAM Continue as directed acetaminophen 500 mg tablet (Tylenol Extra Strength) 1,000 mg PO UD PRN(if needed) ASK your surgeon for instructions meloxicam 15 mg tablet 15 mg PO QAM DO NOT take the morning of surgery calcium carbonate (Tums) 200 mg PO UD PRN Other Notes NOTHING TO EAT OR DRINK AFTER MIDNIGHT. If you have any questions please call us at [phone] or [phone] or [phone] or [phone]
--- NOTE | 2023-11-29 11:18 | Anesthesiology Consultation ---
Date of Service November 29, 2023 Assessment & Plan (1) Encounter for pre-operative examination: - Infectious disease screening: Per assessment on 11/29/23: No known recent infectious disease contacts or current infectious disease symptoms. - Patient acceptable risk for surgery pending surgeon-ordered PCP preop evaluation ([facility], appt 12/20). Chart Review Chart Review: Patient seen in Pre Admission Testing Teaching & Discussion Pre-Anesthesia Teaching/Discussion Notes: Instructed NPO after midnight before surgery,except medications with 15 cc of water. Medication instructions provided according to the PAT guidelines. History Surgery Operation Date: 12/24/23 09:35 Proposed Procedures p C4-C5 Anterior Cervical Discectomy and Fusion - Brandyn Chopra, Height/Weight Height: 5 ft 4.5 in Weight: 103.5 kg Allergies Allergy/AdvReac Type Severity Reaction Status Date / Time No Known Allergies Allergy Unknown Verified 11/23/23 15:28 Medications Home Medications Medication Instructions Recorded Confirmed Last Taken calcium carbonate (Tums) 200 mg PO UD PRN Heartburn 10/10/18 11/23/23 11/03/18 acetaminophen 500 mg tablet 1,000 mg PO UD PRN pain 11/23/23 11/23/23 Unknown (Tylenol Extra Strength) meloxicam 15 mg tablet 15 mg PO QAM 11/23/23 11/23/23 Unknown Past Medical History Medical History Arthritis Cervical spondylosis Degenerative joint disease of knee, left GERD (gastroesophageal reflux disease) History of COVID-summer History of migraine headaches Exercise / Class Metabolic Activity II 4-5 Yardwork/Stairs/Walk up hill (one FS: No CP, no SOB) Past Family History Family History Sister FHx: breast cancer, Onset Age: 59 FHx: bladder cancer, Onset Age: 60 Family history of reaction to anesthesia hx n/v Father FHx: lung cancer, Onset Age: 70 Sister No problems noted. Past Surgical History Surgical History History of anesthesia reaction Slow to wake (with cervical fusion) History of cataract surgery R/L History of colonoscopy History of fusion of cervical spine C5-C7 History of left knee replacement Left TKA (11/08/18): SAB L3-4, 1 attempt + regional at [facility] History of tonsillectomy Nausea and vomiting after administration of anesthetic agent Most severe with Left knee replacement Past Anesthesia History No Hx of Anesthesia Complications and No Family Hx of Anesthesia Complications History of PONV History of PONV and Hx of Motion Sickness (Occasional) STOP BANG Total 4 Social History Smoking Status: Former smoker tobacco type: cigarettes Smoking cigarettes per day: = Do You Dip or Chew Tobacco: No Smoking End Date: Quit 12 yrs ago (hx 30 cigs/day) Hx Alcohol Use: Yes alcohol intake frequency: holidays/special occasions only Hx Substance Use: No substance use type: does not use Review of Systems Patient denies chest pain, shortness of breath, dyspnea on exertion, fever, chills, cough, wheezing, palpitations. Physical Exam Vital Signs BP 128/82 P 67 TEMP 98.4 SP02 95%RA RESP 16 Physical Mildly decreased cervical extension range of motion. Full TMJ range of motion. TMD > 3.5 finger breaths Mallampati Score 2 Dentition: full upper dentures, edentulous Lungs: clear throughout to auscultation Cardiac: regular rate and rhythm, no murmurs noted Spine: normal Carotid arteries: negative bruit Extremities: no LE edema Lab Results Anesthesia Preop Results Results Anesthesia Widget: WBC 7.35 K/ul (4.8-10.8) 11/29/23 Hgb 13.4 g/dl (12.0-16.0) 11/29/23 Hct 40.9 % (37.0-47.0) 11/29/23 Plt 602 K/uL (130-400) H 11/29/23 Na 138 mmol/L (136-145) 11/29/23 K 4.1 mmol/L (3.5-5.1) 11/29/23 Cl 106 mmol/L (98-107) 11/29/23 CO2 27 mmol/L (21-32) 11/29/23 BUN 24 mg/dl (6-23) H 11/29/23 Creat 0.55 mg/dl (0.6-1.2) L 11/29/23 Glucose Level 88 mg/dl (70-99(Fasting)) 11/29/23 PT 11.4 Seconds (9.0-12.0) 11/29/23 PTT 29 Seconds (21-31) 11/29/23 INR 1.1 (0.9-1.1) 11/29/23 Urine Color Dark Yellow 11/29/23 Urine Appearance Cloudy (Clear) A 11/29/23 Urine pH 5.5 (4.5-7.5) 11/29/23 Urine Specific Adin 1.029 (1.000-1.030) 11/29/23 Urine Protein Negative (Negative) 11/29/23 Urine Glucose (UA) Negative (Negative) 11/29/23 Urine Ketones Trace (Negative) H 11/29/23 Urine Blood Negative (Negative) 11/29/23 Urine Nitrite Negative (Negative) 11/29/23 Urine Bilirubin Negative (Negative) 11/29/23 Urine Urobilinogen Negative (Negative) 11/29/23 Urine Leukocyte Esterase 2+ (Negative) H 11/29/23 Urine WBC (Auto) 11-20 /hpf (0-5) H 11/29/23 Urine RBC (Auto) 3-5 /hpf (0-2) H 11/29/23 Urine Hyaline Casts (Auto) 0-2 /lpf (0-2) 11/29/23 Urine Epithelial Cells (Auto) 6-10 /hpf (0-2) H 11/29/23 Urine Bacteria (Auto) None Seen (None Seen) 11/29/23 Blood Type O Positive 11/29/23 Antibody Screen NEGATIVE 11/29/23 Testing Laboratory Results Preop testing forwarded to PCP for continuity of care* Electrocardiogram Date: 08/17/23 NSR at 83bpm. Possible LAE. RBBB. Chest X-Ray Date: 11/29/23 FINDINGS: PA and lateral chest radiographs are compared to study dated 10/17/2018. The cardiomediastinal silhouette is top normal for projection noting atherosclerotic calcification of the thoracic aorta. There is mild bibasilar scarring/atelectasis. The lungs and pleural spaces are otherwise clear. There is no pneumothorax. The skeletal structures are osteopenic. The bony thorax appears intact. Fusion hardware is seen in the lower cervical spine. IMPRESSION: No active disease in the chest.
[2023-12-24] MEDS ORDERED: ROCURONIUM BROMIDE 10 MG/ML 5 ML VIAL IV ONE (08:39)
[2023-12-24] MEDS ORDERED: LIDOCAINE 2% 2 ML VIAL/AMP(20MG/ML) INFIL ONE (08:39)
[2023-12-24] MEDS ORDERED: MIDAZOLAM HCL 1 MG/ML 2ML VIAL ONE (08:39)
[2023-12-24] MEDS ORDERED: PROPOFOL IV EMULSION 10 MG/ML 20 ML VIAL IV ONE (08:39)
[2023-12-24] MEDS ORDERED: fentaNYL citrate PF 100 MCG/2 ML VIAL ONE ×2 (08:39→11:41)
[2023-12-24] MEDS ORDERED: ATROPINE SULFATE 0.1 MG/ML 10ML SYR IV PRN (08:45)
[2023-12-24] MEDS ORDERED: ONDANSETRON INJ 2 MG/ML 2 ML VIAL IV PRN (08:45)
[2023-12-24] MEDS ORDERED: ePHEDrine sulfate 50 MG/ML AMP IV PRN (08:45)
[2023-12-24] MEDS: LR 15ML/HR IV SCH (09:00)
[2023-12-24] MEDS: LR 60ML/HR IV SCH (09:00)
[2023-12-24] MEDS: ACETAMINOPHEN 500 MG TAB PO SCH (09:01)
[2023-12-24] MEDS: CeleBREX 200 MG CAP PO SCH (09:01)
[2023-12-24] MEDS: GABAPENTIN 600 MG DOSE PO SCH (09:01)
[2023-12-24] MEDS: SCOPOLAMINE 1 MG/72 HR TDSY PATCH TD ONE (09:32)
--- NOTE | 2023-12-24 09:38 | History & Physical Bridge Note ---
Date of Service December 24, 2023 History & Physical Bridge Note I have examined the patient, reviewed the History & Physical and in the interval since the performance of the History & Physical I have noted the following changes of clinical significance: no changes noted
--- NOTE | 2023-12-24 09:40 | History & Physical Report ---
Date of Service December 24, 2023 Assessment & Plan (1) Cervical stenosis of spinal canal: Plan: C4-C5 anterior cervical discectomy and fusion History of Present Illness Chief Complaint: Neck and arm pain Primary Care Provider: Pauline Fowler MD This is a 63-year-old female who presents with chronic persistent neck and arm pain and failing since course of nonoperative care is here for surgical invention. Allergies Allergy/AdvReac Type Severity Reaction Status Date / Time No Known Allergies Allergy Unknown Verified 12/24/23 08:38 Home Medications Medication Instructions Recorded Confirmed Type calcium carbonate (Tums) 200 mg PO UD PRN Heartburn 10/10/18 11/23/23 History acetaminophen 500 mg tablet 1,000 mg PO UD PRN pain 11/23/23 12/24/23 History (Tylenol Extra Strength) meloxicam 15 mg tablet 15 mg PO QAM 11/23/23 12/24/23 History Past Med/Surg History Problem List (Updated 12/24/23 @ 09:39 by Brandyn Chopra DO) Cervical stenosis of spinal canal Encounter for pre-operative examination Medical History Arthritis Cervical spondylosis Degenerative joint disease of knee, left GERD (gastroesophageal reflux disease) History of COVID-summer History of migraine headaches Surgical History History of anesthesia reaction Slow to wake (with cervical fusion) History of cataract surgery R/L History of colonoscopy History of fusion of cervical spine C5-C7 History of left knee replacement Left TKA (11/08/18): SAB L3-4, 1 attempt + regional at [facility] History of tonsillectomy Nausea and vomiting after administration of anesthetic agent Most severe with Left knee replacement Family History Sister FHx: breast cancer, Onset Age: 59 FHx: bladder cancer, Onset Age: 60 Family history of reaction to anesthesia hx n/v Father FHx: lung cancer, Onset Age: 70 Sister No problems noted. 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
[2023-12-24] MEDS: ceFAZolin 2000MG 2,000 MG/15 ML SYR IV SCH ×2 (10:01→18:32)
[2023-12-24] MEDS: ceFAZolin 330 MG/ML 1 GM VIAL ONE (10:45)
[2023-12-24] MEDS: FLOSEAL HEMOSTATIC MATRIX 10ML TOP ONE (10:46)
--- NOTE | 2023-12-24 11:13 | Operative Report ---
Post Operative Report Pre & Post Diagnosis Operation Date: 12/24/23 09:55 Pre-Op Diagnosis: cervical spinal stenosis with radiculopathy Post-Op Diagnosis: Same I identified the patient and participated in the time-out.: Yes Procedure Operation Date: 12/24/23 09:55 Actual Procedures #1 anterior cervical discectomy with bilateral foraminotomies C4-C5. #2 anterior cervical arthrodesis C4-C5. #3 placement of globus coalition please with allograft bone graft and os design bone graft C4-C5 Surgeon Brandyn Chopra, DO Senior [employer] Systems Programmer David Singer Estimated Blood Loss 10 Findings See Below Patient is 5 foot 4 weighing over 102 kg a BMI in excess of 38. The patient's body habitus did contribute to significant technical difficulty with positioning exposure and the procedure itself adding at least 50% increased operative time. Specimens None Indications This is a 63-year-old female that presents problems diagnosis of failed course of nonoperative care is here for surgical invention. Description of Procedure Patient was met with identified informed consent obtained. Patient was then taken to the operative suite underwent patient placed in spine position ingestible head Mei early head start director. All bony promises well-padded eyes inspected to ensure no external pressure placed upon them. This point the anterior cervical spine was prepped and draped in a sterile fashion. The assistance of fluoroscopy identified the C4-C5 disc base and a transverse incision was placed along the right anterior aspect of the cervical spine overlying this region. Blunt dissection with the assistance of bipolar cautery was performed down to expose the anterior cervical spine at C4-C5. Self- retaining retractors placed. Informed complete discectomy of C4-C5 out to the uncovertebral joints bilaterally. Manning distraction pins were utilized to assist in visualization. I removed all posterior annular fibers longitudinal ligament bilateral foraminotomies were performed. Endplates were to subcortical bleeding bone and a globus coalition plate and allograft filled with os design bone graft was screwed into position. Incision was then copiously irrigated explored to ensure no damage to surrounding structures remaining bleeding. 10 round VIDAL drain inserted. The incision was then closed with 2 Vicryl in the fascia and 4 Monocryl for final skin closure. Steri-Strips sterile dressing placed. Patient waken taken to PACU stable condition. Please note spinal cord monitoring was utilized at the procedure no changes noted. Lastly David Singer was present that the entire surgeon while the patient positioning complex portion of the surgery and final skin closure. I attest to the content of the Intraoperative Record and any orders documented therein. Any exceptions are noted below.
[2023-12-24] MEDS ORDERED: SUGAMMADEX SODIUM 200 MG/2 ML VIAL IV ONE (11:14)
[2023-12-24] MEDS ORDERED: DEXAMETHASONE SOD INJ 4 MG/ML VIAL ONE (11:15)
[2023-12-24] MEDS ORDERED: ONDANSETRON INJ 2 MG/ML 2 ML VIAL ONE (11:15)
[2023-12-24] MEDS ORDERED: PHENYLEPHRINE 100MCG/ML 10ML SYR IV ONE (11:15)
[2023-12-24] MEDS ORDERED: ePHEDrine sulfate 50 MG/ML AMP ONE (11:15)
--- NOTE | 2023-12-24 11:42 | Fluoroscopy Report ---
FL cervical 2-3V CLINICAL HISTORY: ACDF C4-C5 COMPARISON STUDY: None FLUOROSCOPY TIME: 8 seconds FLUOROSCOPY IMAGES: 2 EXPOSURE DOSE: 0.92 mGy FINDINGS: Anterior surgical sponge. Anterior fusion with discectomy at C4-C5. Additional anterior soraya te and screw fusion hardware is noted at what appears to be the C5-C7 levels. No acute fracture. A mariscal rgical drainage catheter is noted. IMPRESSION: Fluoroscopic assistance as above. ACT 112: Negative or not required by law. Electronically signed by: Cordell Mirza M.D. 12/24/2023 11:41 AM
[2023-12-24] MEDS: HYDROmorphone INJ 2 MG/ML SYR/VIAL IV PRN (11:45)
[2023-12-24] MEDS ORDERED: NALOXONE HCL 0.4 MG/1 ML VIAL/CARP IV PRN (14:03)
[2023-12-24] MEDS ORDERED: ALUMINUM/MAGNESIUM SUSP 30 ML UDC PO PRN (14:03)
[2023-12-24] MEDS ORDERED: ONDANSETRON 4 MG OD TAB PO PRN (14:03)
[2023-12-24] MEDS ORDERED: RACEPINEPHRINE 2.25% NEBU SOLN 0.5 ML VIAL INH PRN (14:03)
[2023-12-24] MEDS ORDERED: LORazepam 0.5 MG in SYRINGE 0.25 ML IV PRN (14:03)
[2023-12-24] MEDS ORDERED: traMADol HCL 50 MG TABLET PO PRN (14:03)
[2023-12-24] MEDS ORDERED: diphenhydrAMINE Capsule 25 MG CAP PO PRN (14:03)
[2023-12-24] MEDS ORDERED: hydrOXYzine HCl 25 MG TAB PO PRN (14:03)
[2023-12-24] MEDS ORDERED: FAMOTIDINE 20 MG TAB PO PRN (14:03)
[2023-12-24] MEDS ORDERED: LORazepam 0.5 MG TAB PO PRN (14:03)
[2023-12-24] MEDS ORDERED: DO NOT ADMINISTER PNEUMOCOCCAL VACCINE PRN (14:03)
[2023-12-24] MEDS ORDERED: DO NOT ADMINISTER FLU VACCINE PRN (14:03)
[2023-12-24] MEDS ORDERED: oxyCODONE HCL IR 5 MG TAB (IMMEDIATE RELEASE) PO PRN (14:03)
[2023-12-24] MEDS ORDERED: dexAMETHasone 8 MG in SYRINGE 0 ML IV PRN (14:03)
[2023-12-24] MEDS ORDERED: ACETAMINOPHEN 500 MG TAB PO PRN (14:03)
[2023-12-24] MEDS ORDERED: MAGNESIUM HYDROXIDE SUSP 30 ML UDC PO PRN (14:03)
[2023-12-24] MEDS ORDERED: bisacodyL 10 MG SUPP PR PRN (14:03)
[2023-12-24] MEDS ORDERED: SOD PHOSPHATE/SOD BIPHOSPHATE ENEMA 132 ML BTL PR PRN (14:03)
[2023-12-24] MEDS: LACTATED RINGER'S 1,000 ML IV SCH (14:38)
[2023-12-24] MEDS: ONDANSETRON INJ 2 MG/ML 2 ML VIAL IV PRN (14:38)
--- NOTE | 2023-12-24 15:27 | Anesthesiology Progress Note ---
Date of Service December 24, 2023 Anesthesia Post Procedure Vital Signs Vital Signs: Temp Pulse Resp BP BP Pulse Ox O2 Del Method 12/24/23 15:00 36.3 C L 70 16 127/82 96 Nasal Cannula 12/24/23 14:56 70 14 96 Nasal Cannula 12/24/23 14:30 36.9 C 67 16 134/80 96 Room Air 12/24/23 14:00 36.3 C L 89 16 147/83 H 93 Room Air 12/24/23 13:50 75 17 139/66 98 Nasal Cannula 12/24/23 13:35 74 10 L 131/77 97 Nasal Cannula 12/24/23 13:20 73 15 146/76 H 98 Nasal Cannula 12/24/23 13:05 68 14 130/83 97 Nasal Cannula 12/24/23 12:50 36.3 C L 70 16 142/91 H 97 Nasal Cannula 12/24/23 12:40 69 8 L 157/85 H 98 Nasal Cannula 12/24/23 12:30 69 8 L 158/92 H 98 Nasal Cannula 12/24/23 12:20 66 15 152/95 H 99 Oxymask 12/24/23 12:10 68 13 128/82 99 Oxymask 12/24/23 12:00 66 17 152/78 H 99 Oxymask 12/24/23 11:50 70 16 151/88 H 100 Oxymask 12/24/23 11:40 72 15 154/88 H 100 Oxymask 12/24/23 11:30 36.0 C L 82 16 163/80 H 100 Oxymask 12/24/23 08:39 36.7 C 66 14 146/91 H 98 Room Air O2 Flow Rate 12/24/23 15:00 2 12/24/23 14:56 2 12/24/23 14:30 12/24/23 14:00 12/24/23 13:50 2 12/24/23 13:35 2 12/24/23 13:20 2 12/24/23 13:05 2 12/24/23 12:50 2 12/24/23 12:40 2 12/24/23 12:30 2 12/24/23 12:20 5 12/24/23 12:10 5 12/24/23 12:00 5 12/24/23 11:50 5 12/24/23 11:40 12/24/23 11:30 12/24/23 08:39 Pain Intensity Right Arm: Pain Intensity: 5 Neck: Pain Intensity: 2 Transfer of Care Handoff Completed per policy Notes Mental Status: alert / awake / arousable and participated in evaluation Nausea / Vomiting: adequately controlled Pain: adequately controlled Airway Patency, RR, SpO2: stable & adequate BP & HR: stable & adequate Hydration State: stable & adequate Anesthetic Complications: no major complications apparent and Pt Satisfied with anesthetic care
[2023-12-24] MEDS: HYDROmorphone INJ 1 MG/ML SYRINGE IV PRN (17:31)
[2023-12-24] MEDS: METOCLOPRAMIDE HCL INJ 5 MG/ML 2 ML VIAL IV PRN (18:32)
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
--- OUTSIDE RECORDS SUMMARY | 2023-12-24 18:56 | External Medical Summary | Summary of Care ---
Author Name Unknown Organization [facility] Address [address] [place] [address] Phone [phone] Care Team Providers Care Screen Tender Helper Name Role Phone Pauline Fowler MD Primary Care Provide r Reason for Visit * Reason Onset Date Comments Encounter Created in Error 12/01/2023 Encounter Details Date Type Department Care Team (Late st Contact Info) Description 12/01/2023 Telephone Family Medicine [address] [phone] Pauline Fowler MD [address] [place], [place] [address] [address] Encounter Created in Error Allergies No known active allergiesdocumented as of this encounter (statuses as of 12/01/2023) Medications Medication Sig Dispensed Refills Start Date End Date Status Meloxicam 15 MG Oral TabletIndications:Demetri ateral chronic knee pain TAKE 1 TABLET BY MOUTH EVERY DAY FOR PAIN 90 Tablet 3 03/04/2023 Active predniSONE 20 MG Oral Tablet (Deltasone)Indication s:Numbness and tingling in left arm 2 tablets daily for 5 days then 1 tablet daily 15 Tablet 08/17/2023 Active documented as of this encounter (statuses as of 12/01/2023) Active Problems Problem Noted Date Diagnosed Date ROBBIN (generalized anxiety disorder) 09/24/2014 History of tobacco use 01/13/2012 Family history of ischemic heart disease 012 Vitamin D deficiency 11/08/2009 Overview: Vitamin D 23.5 ADVANCE DIRECTIVE INFORMATION 08/24/2006 Overview: No, Advance Directive brochure given to patient at prior appointment. documented as of this encounter (statuses as of 12/01/2023) Resolved Problems Problem Noted Date Diagnosed Date Resolved Date Body mass index (BMI) of 40. 0 to 44.9 in adult 12/19/2018 02/17/2019 Overview: Per Obesity protocol Mood disorder 10/31/2018 10/31/2018 Obesity, Class I, BMI 30.0-3 4.9 (see actual BMI) 01/13/2012 10/31/2018 VITAMIN D DEFICIENCY NOS 11/08/2009 Overview: Vitamin D 23.5 Tobacco use disorder 05/25/2003 012 documented as of this encounter (statuses as of 12/01/2023) Immunizations Name Administration Dates Next Due COVID-19 mRNA, LNP-s, No Pre serve, 2-Dose Series ([employer]) 11/25/2021,04/09/2021,07/02/2020,2019 PPD 04/26/2019,04/12/2019 Seasonal Influenza Virus Vac [...] on file documented as of this encounter Plan of Treatment Upcoming Encounters Date Type Department Care Team (Late st Contact Info) Description 12/07/2023 1:40 PM EDT Office Visit Family Medicine [address] [place] [phone] [place] [address] 03/16/2024 2:30 PM EDT Imaging Radiology [address] [place] [address] Scheduled Procedures Name Priority Associated Diagnoses Date/Ti [...] this encounter Medical Devices Implanted Type Area Wet And Dry Sugar Bin Operator Device Identifier Shelf Expiration Date Model / Serial / Lot Lens Intraoc 24.5 - [id number] - [id number] Implanted:Qty: 1 on 07/13/2017 by Sampson Banuelos MD at OR [facility] Left: Eye [employer]USCH [employer] LOMB 09/11/2021 [id number] / [id number] / [id number] Lens Intraoc 24.5 - [id number] - [id number] Implanted:Qty: 1 on 07/20/2017 by Sampson Banuelos MD at OR [facility] Right: Eye BAUSCH & LOMB 11/11/2021 [id number] / [id number] / [id number] documented as of this encounter Advance Directives * Full Code (Latest Code Status on File) Date Activated Date Inactivated Comments 07/20/2017 10:15 AM 07/20/2017 5:00 PM This order re flects the patients wishes and were consensually agreed upon. * Full Code Date Activated Date Inactivated Comments 07/13/2017 7:51 AM 07/13/2017 3:00 PM This order r eflects the patients wishes and were consensually agreed upon. Care Teams Screen Tender Helper Relationship Specialty Start Date End Date Pauline Fowler MD [address] [place] [address] [place] [phone] PCP - General Family Medicine 02/02/23 documented as of this encounter
--- OUTSIDE RECORDS SUMMARY | 2023-12-24 18:56 | External Medical Summary | Summary of Care ---
Author Name Unknown Organization [facility] [address] [facility] [place] [address] Phone [phone] Care Team Providers Care Lumber Straightener Name Role Phone Pauline Fowler MD Primary Care Provide r Reason for Visit * Reason Onset Date Comments FYI 12/01/2023 Pre op form/appt Encounter Details Date Type Department Care Team (Late st Contact Info) Description 12/01/2023 Telephone Family [address] [place] [phone] Pauline Fowler MD [address] [place] [address] [place] [address] FYI (Pre op form/appt) Allergies No known active allergiesdocumented as of [...] mRNA, LNP-s, No Pre serve, 2-Dose Series ([employer]) 11/25/2021,04/09/2021,07/02/2020,2019 PPD 04/26/2019,04/12/2019 Seasonal Influenza Virus Vac [...] on file documented as of this encounter Miscellaneous Notes * Telephone Encounter - Emilia Tellez OSA - 12/01/2023 10:52 AM EDT Called pt back to schedule pre op appt, no answer, left message. See notes from Jacque on 11/30/23from 11/18/23 encounter that form is here and pre op appt can be scheduled. documented in this encounter Plan of Treatment Upcoming Encounters Date Type Department Care Team (Late st Contact Info) Description 12/07/2023 1:40 PM EDT Office Visit Family Medicine [address] [place] [phone] Qian Zazueta [address] [place] [address] 03/16/2024 2:30 PM EDT Imaging Radiology [address] [place] [address] Scheduled Procedures Name Priority Associated Diagnoses Date/Ti [...] this encounter Medical Devices Implanted Type Area Journeyman Powerhouse Operator Device Identifier Shelf Expiration Date Model / Serial / Lot Lens Intraoc 24.5 - [id number] - [id number] Implanted:Qty: 1 on 07/13/2017 by Sampson Banuelos MD at OR [facility] Left: Eye BAUSCH & LOMB 09/11/2021 [id number] / [id number] / [id number] Lens Intraoc 24.5 - [id number] - [id number] Implanted:Qty: 1 on 07/20/2017 by Sampson Banuelos MD at [facility] Right: Eye BAUSCH & LOMB 11/11/2021 [id number] / [id number] / [id number] documented as of this encounter Advance Directives [...] and were consensually agreed upon. Care Teams Lumber Straightener Relationship Specialty Start Date End Date Pauline Fowler MD [address] [place] [address] [place] [address] PCP - General Family Medicine 02/02/23 documented as of this encounter
--- OUTSIDE RECORDS SUMMARY | 2023-12-24 18:56 | External Medical Summary | Summary of Care ---
Author Name Unknown Organization [facility] Address [address] [place] [address] Phone [phone] Care Team Providers Care Associate Professor Of Surgery Name Role Phone Pauline Fowler MD Primary Care Provide r Reason for Visit * Reason Comments Pre-op Clearance Encounter Details Date Type Department Care Team (Late st Contact Info) Description 12/07/2023 1:40 PM EDT Office Visit Family Medicine [address] [place] [phone] [place] [address] Preop examination* Allergies No known active allergiesdocumented [...] mRNA, LNP-s, No Pre serve, 2-Dose Series ([employer]) 11/25/2021,04/09/2021,07/02/2020,2019 PPD 04/26/2019,04/12/2019 Seasonal Influenza Virus Vac [...] Description 03/16/2024 2:30 PM EDT Imaging Radiology [address] [place] [address] Scheduled Procedures Name Priority Associated Diagnoses Date/Ti [...] this encounter Medical Devices Implanted Type Area Unit Manager Rn Device Identifier Shelf Expiration Date Model / Serial / Lot Lens Intraoc 24.5 - [id number] - [id number] Implanted:Qty: 1 on 07/13/2017 by Sampson Banuelos MD at [facility] Left: Eye BAUSCH [employer] LOMB 09/11/2021 [id number] / [id number] / [id number] Lens Intraoc 24.5 - [id number] - [id number] Implanted:Qty: 1 on 07/20/2017 by Sampson Banuelos MD at [facility] Right: Eye BAUSCH & LOMB 11/11/2021 [id number] / [id number] / [id number] documented as of this encounter Visit Diagnoses [...] and were consensually agreed upon. Care Teams Associate Professor Of Surgery Relationship Specialty Start Date End Date Pauline Fowler MD [address] [place] [address] [place] [phone] PCP - General Family Medicine 02/02/23 documented as of this encounter
--- OUTSIDE RECORDS SUMMARY | 2023-12-24 18:57 | External Medical Summary | Summary of Care ---
Author Name Unknown Organization [facility] Address [address] [place] [address] Phone [phone] Care Team Providers Care Product Promoter Retail Pet Name Role Phone Pauline Folwer MD Primary Care Provide r Encounter Details Date Type Department Care Team (Late st Contact Info) Description 11/30/2023 Orders Only Family Medicine [address] [phone] Pauline Fowler MD [address] [place] [address] [place] [address] Allergies No known active allergiesdocumented as of this encounter (statuses as of 11/30/2023) Medications Medication Sig Dispensed Refills Start Date [...] as of this encounter (statuses as of 11/30/2023) Active Problems Problem Noted Date Diagnosed Date ROBBIN (generalized anxiety disorder) 09/24/2014 History of tobacco use 01/13/2012 Family history of ischemic heart disease 012 Vitamin D deficiency 11/08/2009 Overview: Vitamin D 23.5 ADVANCE DIRECTIVE INFORMATION 08/24/2006 Overview: No, Advance Directive brochure given to patient at prior appointment. documented as of this encounter (statuses as of 11/30/2023) Resolved Problems Problem Noted Date Diagnosed Date Resolved Date Body mass index (BMI) of 40. 0 to 44.9 in adult 12/19/2018 02/17/2019 Overview: Per Obesity protocol Mood disorder 10/31/2018 10/31/2018 Obesity, Class I, BMI 30.0-3 4.9 (see actual BMI) 01/13/2012 10/31/2018 VITAMIN D DEFICIENCY NOS 11/08/2009 Overview: Vitamin D 23.5 Tobacco use disorder 05/25/2003 012 documented as of this encounter (statuses as of 11/30/2023) Immunizations Name Administration Dates Next Due COVID-19 mRNA, LNP-s, No Pre serve, 2-Dose Series ([employer]) 11/25/2021,04/09/2021,07/02/2020,2019 PPD 04/26/2019,04/12/2019 Seasonal Influenza Virus Vac [...] Care Team (Late st Contact Info) Description 12/21/2023 3:40 PM EDT Office Visit Family Medicine [address] [place] [phone] Angela Bales MD [address] [place] [address] [place] [address] 03/16/2024 2:30 PM EDT Imaging Radiology [address] [place] [address] Pending Results Name Type Priority Associated Diagnoses Date /Time XR CHEST 2 VIEWS Medical Imaging Routine CHEMISTRY-OUTSIDE Lab Routine 024 Scheduled Procedures Name Priority Associated Diagnoses Date/Ti [...] 10/08/2014 Colorectal Cancer Screening 10/08/2024 Diabetes Screening 02/02/2026 02/02/2023, 0 02/02/2022, 01/31/2021, Additional history exists Lipid Panel 02/03/2028 02/02/2023, [...] this encounter Medical Devices Implanted Type Area Roofing Technician Device Identifier Shelf Expiration Date Model / Serial / Lot Lens Intraoc 24.5 - [id number] - [id number] Implanted:Qty: 1 on 07/13/2017 by Sampson Banuelos MD at OR [facility] Left: Eye BAUSCH & LOMB 09/11/2021 [id number] / [id number] / [id number] Lens Intraoc 24.5 - [id number] - [id number] Implanted:Qty: 1 on 07/20/2017 by Sampson Banuelos MD at OR [facility] Right: Eye BAUSCH & LOMB 11/11/2021 [id number] / [id number] / [id number] documented as of this encounter Advance Directives [...] and were consensually agreed upon. Care Teams Product Promoter Retail Pet Relationship Specialty Start Date End Date Pauline Fowler MD [address] [place] [address] [place] [phone] PCP - General Family Medicine 02/02/23 documented as of this encounter
--- OUTSIDE RECORDS SUMMARY | 2023-12-24 18:57 | External Medical Summary | Summary of Care ---
Author Name Unknown Organization [facility] Address [address] [place] [address] Phone [phone] Care Team Providers Care Camp Counselor Name Role Phone Pauline Fowler MD Primary Care Provide r Encounter Details Date Type Department Care Team (Late st Contact Info) Description 11/29/2023 Result Scan Unspecified Department <No scans attached> Allergies No known active allergiesdocumented as of [...] mRNA, LNP-s, No Pre serve, 2-Dose Series ([employer]) 11/25/2021,04/09/2021,07/02/2020,2019 PPD 04/26/2019,04/12/2019 Seasonal Influenza Virus Vac [...] 3:40 PM EDT Office Visit Family Medicine [address] [place] [phone] Angela Bales MD [address] [place] [address] [place] [address] 03/16/2024 2:30 PM EDT Imaging Radiology [address] [place] [address] Scheduled Procedures Name Priority Associated Diagnoses Date/Ti [...] Colorectal Cancer Screening 10/08/2024 Diabetes Screening 02/02/2026 11/29/2023, 0 02/02/2023, 02/02/2022, Additional history exists [...] this encounter Medical Devices Implanted Type Area Adjunct Faculty Device Identifier Shelf Expiration Date Model / Serial / Lot Lens Intraoc 24.5 - [id number] - [id number] Implanted:Qty: 1 on 07/13/2017 by Sampson Banuelos MD at OR [facility] Left: Eye BAUSCH & LOMB 09/11/2021 [id number] / [id number] / [id number] Lens Intraoc 24.5 - [id number] - [id number] Implanted:Qty: 1 on 07/20/2017 by Sampson Banuelos MD at OR [facility] Right: Eye BAUSCH & LOMB 11/11/2021 [id number] / [id number] / [id number] documented as of this encounter Procedures Procedure Name Priority Date/Time Associated Diagnosis Comments OUTSIDE LAB RESULTS 11/29/2023 OUTSIDE LAB RESULTS 11/29/2023 documented in this encounter Results * OUTSIDE LAB RESULTS (11/29/2023) 11/29/2023 No Physician Data Unknown LABORATORY * OUTSIDE LAB RESULTS (11/29/2023) 11/29/2023 No Physician Data Unknown LABORATORY documented in this encounter Advance Directives * [...] and were consensually agreed upon. Care Teams Camp Counselor Relationship Specialty Start Date End Date Pauline Fowler MD [address] [place] [address] [place] [id number] PCP - General Family Medicine 02/02/23 documented as of this encounter
[2023-12-24] MEDS: SCOPOLAMINE 1 MG/72 HR TDSY PATCH TD STA (19:21)
[2023-12-24] MEDS: CHECK SCOPOLAMINE PATCH PLACEMENT SCH (19:22)
[2023-12-24] MEDS: DOCUSATE SODIUM/SENNA 50/8.6MG TAB PO SCH (21:08)
[2023-12-24] MEDS: PROMETHAZINE HCL 12.5 MG in SODIUM CHLORIDE 0.9% 50 ML IV PRN (21:28)
[2023-12-25] MEDS: ACETAMINOPHEN 1,000 MG/100 ML VIAL IV PRN (03:21)
[2023-12-25] MEDS: POLYETHYLENE (MIRALAX) 17 GM PACK PO SCH (04:47)
[2023-12-25] MEDS: HYDROmorphone INJ 0.5 MG/0.5 ML SYR IV PRN (05:50)
[2023-12-25] MEDS: dexAMETHasone 6 MG in SYRINGE 0 ML IV SCH (08:30)
--- NOTE | 2023-12-25 09:12 | Discharge Summary ---
Date of Service December 25, 2023 Admission HPI Per Admitting Provider This is a 63-year-old female who presents with chronic persistent neck and arm pain and failing since course of nonoperative care is here for surgical invention. Principal Diagnosis Cervical spinal stenosis with radiculopathy Discharge Data Allergies Allergy/AdvReac Type Severity Reaction Status Date / Time No Known Allergies Allergy Unknown Verified 12/24/23 08:38 Procedures Performed Operation Date: 12/24/23 09:55 Actual Procedures p C4-C5 Anterior Cervical Discectomy and Fusion, Spinal Cord Monitoring - Brandyn Chopra DO Ordered Studies 12/24/23 09:55 FL cervical 2-3V Routine Hospital Course (1) Cervical stenosis of spinal canal: Patient underwent anterior cervical discectomy and fusion tolerated this well was taken to orthopedic for postoperative. Postop issues swallowing well. No hoarseness. Neck and arm symptoms improved. VIDAL drain decreasing. Subsidy discharged home. Discharge orders instructions from the chart for further review. Total Time Total Time Spent Total Time Spent (In Minutes): 20 minutes Discharge Plan Discharge Items Patient Disposition: Home - Self-Care Reason For Visit: Cervical Spondylosis with Radiculopathy Discharge Diagnosis: Cervical spinal stenosis with radiculopathy Activity: As commented below Non-emergency contact: Primary Care Provider Call non-emergency contact if: you have any medication questions Follow-up/Referrals: Pauline Fowler MD [Primary Care Provider] - Diet: Regular Addtl Attending Provider Instructions: ACTIVITY RECOMMENDATIONS: SELF CARE INSTRUCTIONS AFTER CERVICAL FUSIONS 1. No smoking. Smoking drastically decreases the chance of a solid fusion. 2. No bending, lifting more than 5 pounds, or twisting (roll like a log when tu rning in bed). 3. You may shower 3 days after surgery. Thoroughly dry wound. Do not soak in the tub. 4. Cervical collar: Must be worn at all times including sleeping. You may remove the brace only to bath, eat and if you are sitting in a recliner. 5. Please walk as much as you can for exercise. Gradually increase the distance that you walk as your endurance increases. SPECIAL CARE INSTRUCTIONS: VERY IMPORTANT TO READ AND REVIEW A. Do not take any anti-inflammatory medications (i.e. Indocin, Advil, Aspirin, Naprosyn, Aleve, Motrin, etc.) as these may inhibit the chance of a solid fusion. Tylenol is okay to take. B. Your surgical incision has been closed with a cosmetic suture under the skin that will dissolve in about 6 weeks. In 14 days, you can use a pair of clean scissors and cut the suture that is left outside of the skin at the ends of your incision. C. Complications are uncommon, but please contact us if you have any signs or symptoms of: 1. wound infection (fever higher than 102.5 degrees F, redness, separation of wound, drainage, or increasing pain from the incision) 2. blood clots in legs (pain, swelling, redness and warmth in legs) 3. urinary tract infection (fever higher than 102.5 degrees, burning upon urination or increased frequency of urination) 4. nerve problems (inability to walk on your toes or heels, numbness, loss of bowel or bladder control) 5. any other symptoms that concern you. D. Please call the office at if you have any concerns or questions about your operation or recovery. MANAGING PAIN AFTER SPINAL SURGERY 1. Narcotic medication is intended for short-term use and will be provided for surgical pain. Surgical pain usually lasts for a period of 4-6 weeks. Narcotic medication includes Percocet, Vicodin, Darvocet, Tylenol #3 or Lortab. 2. Longer-term pain is more appropriately treated with non-narcotic medication such as Tylenol ES. 3. Muscle spasm is not appropriately treated with narcotics. Muscle relaxers such as Soma, Flexeril or Skelaxin can be used along with Tylenol ES. 4. Remember that we all live with some "aches and pains". This is not unusual or uncommon after an injury or as we get older. 5. We will provide appropriate medication within the normal guidelines of their prescribed use. We will also be very cautious and aware of potential abuse and extended duration of patients' medication needs. 6. Please allow 2-3 days to process refills. Prescriptions will not be mailed but must be picked up at the office. FOLLOW UP VISIT: Keep your scheduled follow-up appointment. Any questions, please call the office at . Pending Studies at Discharge: No Stand-Alone Forms: [employer], Smoking Cessation Medications and MS Order Prescriptions: New tramadol 50 mg tablet 50 mg PO Q6H PRN (Reason: pain, moderate) Qty: 20 0RF oxycodone 5 mg tablet 5 mg PO Q6H PRN (Reason: pain) Qty: 20 0RF Continued calcium carbonate [Tums] 200 mg calcium (500 mg) Tablet,Chewable 200 mg PO UD PRN (Reason: Heartburn) acetaminophen [Tylenol Extra Strength] 500 mg tablet 1,000 mg PO UD PRN (Reason: pain) Discontinued meloxicam 15 mg Tablet 15 mg PO QAM Discharge Orders: Discharge Order (Routine); Ordered 12/25/23 Ordered By: Brandyn Chopra Admission Data Admit Date/Time: 12/24/23 11:16 Attending Provider: Brandyn Chopra Admit Provider: Brandyn Chopra Primary Care Provider: Pauline Fowler
== END 2023-12-25 14:21 | disposition home or self-care (01) ==
LOC: PACUINP 08:10 → ASU 08:10 → 3W 13:57